=== PATIENT | female | born 1980 | race Caucasian/White ===

== ENCOUNTER 2016-11-14 13:42 | Emergency (ER) | payer MEDICAID ==
[~2016-11-14] VITALS: Ht 172.7 cm; Wt 72.0 kg
[2016-11-14 14:40] VITALS: Ht 172.7 cm; Wt 72.0 kg
[2016-11-14 17:37] LABS: BASOPHILS % 0.3 % (0.0-2.0); EOSINOPHILS % 0.5 % (0.0-7.0); HEMOGLOBIN 12.8 g/dl (12.0-16.0); LYMPHOCYTES % 21.6 % (15.0-51.0); MEAN CORPUSCULAR HEMOGLOBIN 31.2 pg (29.0-33.0); MEAN CORPUSCULAR HGB CONC 33.6 g/dl (32.0-37.0); MEAN CORPUSCULAR VOLUME 92.8 fl (82.0-101.0); MEAN PLATELET VOLUME 8.1 fl (7.4-10.4); MONOCYTE # 0.5 10^3/ul (0.3-0.9); MONOCYTES % 4.9 % (0.0-11.0); NEUTROPHIL # 6.8 10^3/ul (1.6-7.5); NEUTROPHILS % 72.7 % (39.0-77.0); PLATELET COUNT 222 10^3/UL (140-440); RED BLOOD COUNT 4.09 10^6/ul (4.20-5.40); RED CELL DISTRIBUTION WIDTH 13.5 % (11.5-14.5); UNCORRECTED WBC 9.4 10^3/ul (4.8-10.8); WHITE BLOOD COUNT 9.4 10^3/ul (4.8-10.8)
[2016-11-14 17:39] LABS: ADD UMIC NO; URINE BILIRUBIN (Dip) NEGATIVE (NEGATIVE); URINE BLOOD (Dip) NEGATIVE (NEGATIVE); URINE COLOR LT. YELLOW (YELLOW); URINE GLUCOSE (Dip) NEGATIVE (NEGATIVE); URINE KETONES (Dip) TRACE (NEGATIVE); URINE LEUKOCYTE ESTERASE (Dip) NEGATIVE (NEGATIVE); URINE NITRITE (Dip) NEGATIVE (NEGATIVE); URINE TOTAL PROTEIN (Dip) NEGATIVE (NEGATIVE); URINE UROBILINOGEN (Dip) 0.2 E.U./dL (0.1-1.0)
[2016-11-14 17:41] LABS: CONDITION 1
--- NOTE | 2016-11-14 18:11 | RADRPT ---
PROCEDURE: US OB. CLINICAL INDICATION: with vaginal hemorrhage. TECHNIQUE: Transabdominal and transvaginal views of the pelvis are available for review. COMPARISON: No prior studies are available for comparison. FINDINGS: Ultrasound estimated gestational age:13 weeks and 0 days Estimated date of delivery is 05/22/2017 . heart motion is detected at a rate of 158 beats pe r minute. No evident ovarian torsion. Small left ovarian corpus luteum cyst. No ovarian or adnexal mass lesion is seen. There is no free fluid. Posterior grade 0 placenta, with small amount of fluid posterior to the superior tip of the placenta compatible with a small region of placental abruption. This measures about 4 mm in thickness. IMPRESSION: 1. Single live intrauterine with an estimated gestational age of 13 weeks and 0 days.. 2. Posterior grain 0 placenta, with small region of placental abruption. 3. Recommend close serial ultrasound follow up. RPTAT: UU Physician Pushpa Date Time Electronically viewed and signed by Physician Pushpa on 11/14/2016 18:11 RS/
--- NOTE | 2016-11-14 20:14 | ERD ---
ER Documentation Chief Complaint Date/Time DATE: 11/14/16 TIME: 20:09 Chief Complaint AP and back pain since this morning, 11eeks . HPI Patient is a 36-year-old approximately 11 weeks complaining of back pain that radiates forward on the right lower back that began today. Pain comes and goes and she rates the pain as a 4 out of 10 throbbing. Denies any nausea or vomiting. Denies any fever. Denies any vaginal bleeding. Denies any dysuria, hematuria, or increased urinary frequency. She is taking vitamins. ROS All systems reviewed and are negative except as per history of present illness. Allergies Allergies: Coded Allergies: No Known Allergy (Unverified , 11/14/16) PMhx/Soc Medical and Surgical Hx: pt denies Medical Hx, pt denies Surgical Hx History of Surgery: No Anesthesia Reaction: No Hx Neurological Disorder: No Hx Respiratory Disorders: No Hx Cardiac Disorders: No Hx Psychiatric Problems: No Hx Miscellaneous Medical Probl: No Hx Alcohol Use: No Hx Substance Use: No Hx Tobacco Use: No Smoking Status: Never smoker FmHx Family History: No diabetes Physical Exam Vitals Vital Signs Date Time Temp Pulse Resp B/P Pulse Ox O2 Delivery O2 Flow Rate FiO2 11/14/16 14:40 98.9 65 16 113/59 100 Physical Exam General: well developed, well nourished, alert, nontoxic, no distress Head: normocephalic, atraumatic Neck: Supple, nontender, no lymphadenopathy, no midline tenderness Respiratory: Clear to auscaultation bilaterally, speaks in full sentences, no use of accesory muscles or labored breathing, no rales, ronchi, or wheezing Cardiovascular: RRR, No murmurs GI: soft, non tender, non distended, negative murphys sign, negative mcburneys point tenderness, no cva tenderness bilaterally, no rebound or guarding Back: no midline tenderness, no step offs or bony abnormalities, sensation to light touch in tact Extremities: moving all extremities normally, normal gait, no edema Result Diagram: 11/14/16 1723 Results 24 hrs Laboratory Tests Test 11/14/16 17:23 Basophils # 0.010^3/ul Basophils % 0.3% Beta HCG, Quantitative 81620.0mIU/ml Eosinophils # 0.010^3/ul Eosinophils % 0.5% Hematocrit 38.0% Hemoglobin 12.8g/dl Lymphocytes # 2.010^3/ul Lymphocytes % 21.6% Mean Corpuscular Hemoglobin 31.2pg Mean Corpuscular Hemoglobin Concent 33.6g/dl Mean Corpuscular Volume 92.8fl Mean Platelet Volume 8.1fl Monocytes # 0.510^3/ul Monocytes % 4.9% Neutrophils # 6.810^3/ul Neutrophils % 72.7% Nucleated Red Blood Cells # 0.010^3/ul Nucleated Red Blood Cells % 0.0/100WBC Platelet Count 45729^3/UL Red Blood Count 4.0910^6/ul Red Cell Distribution Width 13.5% Urine Bilirubin NEGATIVE Urine Clarity CLEAR Urine Color LT. YELLOW Urine Glucose NEGATIVE% Urine Hemoglobin NEGATIVE Urine Ketones TRACE Urine Leukocyte Esterase NEGATIVE Urine Nitrite NEGATIVE Urine Specific Cosby 1.020 Urine Total Protein NEGATIVE Urine Urobilinogen 0.2 E.U./dL Urine pH 5.5 White Blood Count 9.410^3/ul Procedures/MDM Patient is a 36-year-old female who is approximately 11 weeks complaining of back pain radiating to the front that began this morning. Her vital signs are all within normal limits and she is well-appearing in no distress and her GI examination is normal. She has no vaginal bleeding. Blood work was unremarkable and she is hemodynamically stable however ultrasound did show a posterior grain 0 placenta with small region of placental abruption. No evidence of ectopic. I reviewed this finding with my supervising physician Dr. Nesbitt who explained this patient is suitable for outpatient management. She is not a candidate for RhoGam. She was given copies of her labs and ultrasound including CD with images and instructed to follow-up with OB tomorrow or return here within 1-2 days for serial examination and hcg monitoring. Recommended this patient follow up with her primary care doctor within 48 hours or return to the emergency room for any worsening of symptoms. However this time I do believe there is suitable for outpatient management. I answered all their questions and they agreed with the plan and were discharged home. Departure Diagnosis: Primary Impression: Placental abruption Condition: Stable Patient Instructions: Possible Miscarriage (Threatened ) Additional Instructions: Call your primary care doctor TOMORROW for an appointment during the next 1-2 days.See the doctor sooner or return here if your condition worsens before your appointment time. Return for FU ultrasound in 1-2 or sooner if unable to follow up with OB. RENE GUZMAN PA-C Nov 14, 2016 20:14
[2016-11-14 21:01] VITALS: BP 118/62; PULSE 72; RESP 16; TEMP 98.5
== END 2016-11-14 21:02 | disposition home or self-care (01) ==
LOC: FTE 13:42
DX: O45.91 Premature separation of placenta, unspecified, first trimester (principal); R10.9 Unspecified abdominal pain; Z3A.13 13 weeks gestation of pregnancy
CPT/HCPCS: 36415; 76801; 81003; 84702; 85025; 86900; 86901; Z7502